=== PATIENT | female | born 1965 | race Caucasian/White ===

== ENCOUNTER 2023-12-09 06:43 | Day surgery (SDC) | payer SELFPAY ==
[2023-12-09] MEDS ORDERED: ceFAZolin SODIUM 1 GM VIAL ONE ×2 (07:36→08:53)
[2023-12-09] MEDS ORDERED: BACITRACIN ZINC 15 GM TUBE TOPICAL OINTMENT ONE (07:37)
[2023-12-09] MEDS ORDERED: BUPIVACAINE HCL/PF 2.5 MG/ML - 30 ML VIAL IJ ONE (07:37)
[2023-12-09] MEDS ORDERED: EPINEPHrine/PF 1 MG/1 ML (1:1,000) AMPULE ONE (07:37)
[2023-12-09] MEDS ORDERED: GENTAMICIN SO4 80 MG/2 ML VIAL ONE (07:37)
[2023-12-09] MEDS ORDERED: HEPARIN NA (PORCINE) 5,000 UNITS/ML 1ML VIAL SQ ONE (08:00)
[2023-12-09] MEDS ORDERED: PROPOFOL 20 ML ONE ×3 (08:04→13:55)
[2023-12-09] MEDS ORDERED: ROCURONIUM BROMIDE 50 MG/5 ML SYRINGE ONE (08:04)
[2023-12-09] MEDS ORDERED: MIDAZOLAM HCL 2 MG/2 ML SINGLE DOSE VIAL ONE (08:07)
[2023-12-09] MEDS ORDERED: DEXAMETHASONE SOD PHOSPHATE 4 MG/1 ML VIAL ONE (08:12)
[2023-12-09] MEDS ORDERED: ONDANSETRON 4 MG/2 ML VIAL ONE (08:12)
[2023-12-09] MEDS ORDERED: POLYMYXIN B SULFATE 500,000 UNIT VIAL ONE (08:23)
[2023-12-09] MEDS ORDERED: BUPIVACAINE LIPOSOME/PF (EXPAREL) 266 MG/20 ML VIAL ONE (08:24)
[2023-12-09] MEDS ORDERED: NEOSTIGMINE METHYLSULFATE 0.5 MG/1 ML - 10 ML MDV ONE (13:37)
[2023-12-09] MEDS ORDERED: ACETAMINOPHEN INJECTION 100 ML IVPB ONE (14:42)
[2023-12-09] MEDS ORDERED: LACTATED RINGERS SOLUTION 1,000 ML IV SCH ×2 (14:45→16:30)
[2023-12-09] MEDS: ACETAMINOPHEN 1000 MG/100 ML BAG IVPB ONE ×2 (14:45→20:09)
[2023-12-09] MEDS ORDERED: FENTANYL CITRATE/PF 50 MCG/ML VIAL ONE (15:03)
[2023-12-09] MEDS ORDERED: ONDANSETRON 4 MG/2 ML VIAL IVPB PRN (16:30)
[2023-12-09 17:07] VITALS: RESP 18
[2023-12-09] MEDS: oxyCODONE HCL 5 MG TABLET PO PRN ×2 (18:04→23:48)
[2023-12-09] MEDS: CEFAZOLIN 1 GM in DEXTROSE 5%-WATER - 50 ML IVPB SCH (21:16)
[2023-12-10] MEDS: CEFAZOLIN 1 GM in DEXTROSE 5%-WATER - 50 ML IVPB SCH ×2 (03:42→09:59)
[2023-12-10] MEDS: oxyCODONE HCL 5 MG TABLET PO PRN ×2 (04:31→11:17)
[2023-12-10 07:08] VITALS: BP 120/59; PULSE 71; TEMP 100
[2023-12-10] MEDS ORDERED: HEPARIN NA (PORCINE) 5,000 UNITS/ML 1ML VIAL SQ SCH (08:30)
[2023-12-10] MEDS ORDERED: DOCUSATE SODIUM 100 MG CAPSULE (FP) PO SCH (10:00)
== END 2023-12-10 14:30 | disposition home or self-care (01) ==
LOC: FASUSAT 06:43 → FASU 06:43 → EDBD 08:00 → FASU 16:30 → FM/S 16:30 → FASUSAT 12-10 14:30
PROVIDERS: ATTEND Plastic Surgery
PROC: 0H0V0ZZ Alteration of Bilateral Breast, Open Approach (ICD-10-PCS; principal; 2023-12-09 09:08)
PROC: 0W0F0ZZ Alteration of Abdominal Wall, Open Approach (ICD-10-PCS; 2023-12-09 09:08)
PROC: 0J083ZZ Alteration of Abdomen Subcutaneous Tissue and Fascia, Percutaneous Approach (ICD-10-PCS; 2023-12-09 09:08)
DX: Z41.1 Encounter for cosmetic surgery (principal)
CPT/HCPCS: 71045-TC-FY; 71046-TC-FY; 88305-TC; 94760; J1644